=== PATIENT | female | born 1995 | race Hispanic/Latino ===

== ENCOUNTER 2017-05-26 18:01 | Outpatient (CLI) | payer OTHER, MEDICAID ==
[2017-05-26 19:40] VITALS: BP 129/76
[2017-05-26 20:12] LABS: Bacteria,Urine 1+ /HPF (Negative); Bilirubin,Urine NEG (Negative); Blood,Urine SM (Negative); Ketones,Urine TR mg/dL (Negative); Leukocyte Esterase,Urine NEG (Negative); Mucus,Urine 2+ /HPF; Nitrite,Urine NEG (Negative)
--- NOTE | 2017-05-27 07:19 | Ultrasound Report ---
BIOPHYSICAL PROFILE: INDICATION: Decreased movement. COMPARISON: 07/07/2015. TECHNIQUE: Transabdominal ultrasound with Doppler interrogation. 2 - breathing movements 2 - movements 2 - posture and tone 2 - Qualitative amniotic fluid volume 8 - TOTAL SCORE OF POSSIBLE 8 Heart Rate (bpm) 153
--- NOTE | 2017-05-27 07:21 | Ultrasound Report ---
OB LIMITED INDICATION: Leaking of fluid. COMPARISON: 07/07/2015 TECHNIQUE: Transabdominal grayscale ultrasound with Doppler interrogation. Gestation: Sahni Position: Cephalic Amniotic Fluid: WNL (7-24 cm) YEISON = 11.1 cm Placenta: Anterior Placental Grade: I Heart Rate: 154 BPM
== END 2017-05-26 20:49 | disposition home or self-care (01) ==
LOC: TRG 18:01
PROVIDERS: ATTEND Obstetrics & Gynecology
DX: O36.8130 Decreased fetal movements, third trimester, not applicable or unspecified (principal); O42.92 Full-term premature rupture of membranes, unspecified as to length of time between rupture and onset of labor; Z3A.37 37 weeks gestation of pregnancy
CPT/HCPCS: 59025; 76815; 76819; 81001

== ENCOUNTER 2017-06-13 16:22 | Inpatient (IN) | payer OTHER, MEDICAID ==
--- NOTE | 2017-06-13 17:39 | Ultrasound Report ---
FINAL REPORT PROCEDURE: US OB BPP WO NON-STRESS TECHNIQUE: Sonographic evaluation for breathing, movement, tone, and amniotic fluid volume was performed. CPT 70269 HISTORY: decreased movement COMPARISON: No prior studies are available for comparison. FINDINGS: Single live intrauterine is seen with heart rate of 149 beats per minute. Amniotic fluid appears echogenic possibly due to debris. Amniotic fluid volume: Normal-score 2. At least one vertical pocket \T\gt; 2 cm or more in vertical axis. breathing: Normal-score 2. movement: Normal-score 2. tone: Normal. Score: 8 of 8. IMPRESSION: Normal biophysical profile. Amniotic fluid appears echogenic possibly due to debris.
[2017-06-13] MEDS ORDERED: REGLAN IV ONE (17:46)
[2017-06-13] MEDS ORDERED: PEPCID IV ONE (17:46)
[2017-06-13] MEDS ORDERED: BICITRA PO ONE (17:46)
[2017-06-13] MEDS ORDERED: ANCEF/STERILE WATER 2 GM/20 ML 2 GM/20 ML SYRINGE IV NR (18:00)
[2017-06-13] MEDS ORDERED: PITOCin/NS 20 UNIT/1000ML DRIP 20 UNITS/1,000 ML BAG IV SCH ×2 (18:00→22:00)
[2017-06-13] MEDS ORDERED: LACTATED RINGERS 1,000 ML IV SCH (18:00)
--- NOTE | 2017-06-13 18:29 | History and Physical Report ---
History of Present Illness Date of examination: 06/13/17 Date of admission: 06/13/17 16:24 Chief complaint: Decreased movement History of present illness: 22-year-old at 40+3 weeks (via sono at [facility] at 11 wks) presents for DFM, she is scheduled for C-S in the AM. She is status post BPP which is 8 out of 8 with noted notation made of thick amniotic fluid with particulate matter, her NST is category 2. Past History Past Medical History: no pertinent history Past Surgical History: section (# 1 in 2014) NURSERY ATTENDANT History: denies: chlamydia, gonorrhea, hepatitis B, hepatitis C, herpes, HIV , syphilis, trichomonas Social history: single, full code. denies: smoking, alcohol abuse, prescription drug abuse, IV drug use - Obstetrical History Expected Date of Delivery: 06/10/17 Actual Gestation: 40 Week(s) 3 Day(s) : 2 Para: 1 Medications and Allergies Allergies Allergy/AdvReac Type Severity Reaction Status Date / Time No Known Allergies Allergy Verified 07/10/15 20:32 Home Medications Medication Instructions Recorded Confirmed Last Taken Type Ferrous Sulfate [Feosol 325 MG tab] 325 mg PO BID #60 tablet 07/12/15 Unknown Rx HYDROcodone/APAP 5-325 [[place] 1 each PO Q6HR PRN #30 tablet 07/12/15 Unknown Rx 5/325] Ibuprofen [Motrin] 800 mg PO Q8HR PRN #30 tablet 07/12/15 Unknown Rx Pnv with Ca,No.72/Iron/FA 1 each PO DAILY #30 tablet 07/12/15 Unknown Rx [ Plus Tablet] Nitrofurantoin Macrocrysta(Nf) 100 mg PO QID #14 capsule 05/26/17 Unknown Rx [Macrodantin CAP] Active Meds: Active Medications Cefazolin Sodium (Ancef/Sterile Water 2 Gm/20 Ml) 2 gm in 20 mls @ 80 mls/hr IV PREOP NR PRN Reason: Protocol Stop: 06/13/17 23:59 Lactated Ringer's (Lactated Ringers) 1,000 mls @ 2,250 mls/hr IV PREOP JOSÉ Stop: 06/14/17 18:27 Oxytocin/Sodium Chloride (Pitocin/Ns 20 Unit/1000ml Drip) 20 units in 1,000 mls @ 0 mls/hr IV TITR JOSÉ PRN Reason: As Directed Review of Systems Constitutional: no fever, no chills, no fatigue, no weakness Cardiovascular: no chest pain, no orthopnea, no edema, no syncope, no lightheadedness, no shortness of breath, no dyspnea on exertion, no high blood pressure Respiratory: no excessive sputum, no shortness of breath, no dyspnea on exertion Gastrointestinal: no abdominal pain, no nausea, no vomiting, no heartburn, no indigestion Genitourinary: no vaginal bleeding, no vaginal discharge, no leakage of fluid, no contractions - Vital Signs Vital signs: Vital Signs Pulse Pulse Ox 94 H 98 06/13/17 16:28 06/13/17 16:28 Temp Pulse Resp BP Pulse Ox 82 98 06/13/17 18:09 06/13/17 18:09 - Physical Exam Cardiovascular: Regular rate, Normal S1, Normal S2 Lungs: Positive: Clear to auscultation, Normal air movement Abdomen: Positive: normal appearance, soft. Negative: distention, tenderness, guarding, rigidity Uterus: Positive: enlarged (EFW ~ 3600). Negative: tender Extremities: Positive: normal - Obstetrical FHR: category 2 Results All other labs normal. Assessment and Plan A: 22-year-old 001 at 40+3 with prior desires repeat -[facility] 05/09 P: -Patient has been consented -Proceed with repeat once OR available - Patient Problems (1) 40 weeks gestation of Current Visit: No Status: Acute (2) History of Current Visit: Yes Status: Acute
[2017-06-13 18:58] LABS: Basophils % (Auto) 0.2 % (0.0-1.8); Eosinophils % (Auto) 0.2 % (0.0-4.3); Hemoglobin 11.4 gm/dl (10.1-14.3); Mean Corpuscular HGB Conc 32 % (30-34); Mean Corpuscular Hemoglobin 27 pg (28-32); Mean Corpuscular Volume 85 fl (79-97); Platelet Count 176 K/mm3 (140-440); Red Blood Count 4.23 M/mm3 (3.65-5.03); Red Cell Distribution Width 14.1 % (13.2-15.2); White Blood Count 12.2 K/mm3 (4.5-11.0)
[2017-06-13] MEDS ORDERED: ANCEF/STERILE WATER 2 GM/20 ML IV ONE (19:55)
[2017-06-13] MEDS ORDERED: WATER FOR IRRIG STERILE IR ONE (20:00)
[2017-06-13] MEDS ORDERED: NACL 0.9% IR ONE (20:00)
[2017-06-13] MEDS ORDERED: LACTATED RINGERS 1,000 ML ONE (20:25)
[2017-06-13] MEDS ORDERED: MORPHINE ONE (20:26)
[2017-06-13] MEDS ORDERED: ZOFRAN ONE (20:30)
[2017-06-13] MEDS ORDERED: NEO SYNEPHRINE/NS Syringe(OR USE) IV ONE (20:30)
[2017-06-13] MEDS ORDERED: VERSED ONE (20:33)
--- NOTE | 2017-06-13 21:01 | Event Note ---
Date: 06/13/17 Just reviewed a copy of patients record from [facility]. She had a pelvic sono at 8+6 wks on 11/10/16 whic puts her GABBY at 06/16/17. Patients gestational age is therefore 39+4 weeks.
--- NOTE | 2017-06-13 21:10 | Operative Report ---
Operative Report Operative Report: DATE: 06/13/2017 PREOPERATIVE DIAGNOSIS: 22-year-old 001 at 39+4 weeks, prior desires repeat, BPP 8 out of 10 POSTOP DIAGNOSIS: As above NAME OF PROCEDURE: Repeat low transverse section SURGEON: IMTIAZ ABDUL MD CELL TESTER: [] ANESTHESIA: Combined spinal epidural EBL: 700 mL PATHOLOGY SPECIMEN: None URINE OUTPUT: 100 mL BRIEF NOTE: Patient scheduled for tomorrow, presented to triage complaining of decreased movement. Sonogram for BPP 8 out of 8 but shows - "amniotic fluid appears very thick with internal debris". Patient's NST category 2 with minimal variability. Decision made to proceed with repeat C- section. FINDINGS: Male infant in cephalic presentation, time of was 20:17, infant weight was 3503 grams or 7 lbs. 12 oz., Apgars were 8 and 9, normal uterus tubes and ovaries bilaterally, minimal adhesions DESCRIPTION OF PROCEDURE: She was taken to the operating room where she was prepped and draped in a sterile fashion, she was placed in the dorsal supine position. Pfannenstiel incision was performed through her prior incisional scar which was carried through to underlying rectus fascia which was scored in the midline. The fascial incision was extended laterally with use of Saavedra scissors, the anterior leaf was then grasped with Kochers forceps elevated dissected sharply and bluntly off the underlying rectus in a similar fashion inferior leaf was grasped elevated dissected sharply and bluntly off the underlying rectus. The rectus was in the midline, good visualization of bladder was noted. A bladder blade was placed in the patient's pelvic cavity ; bladder flap was created. A hysterotomy incision was then performed in the lower segment with white colored amniotic fluid noted, hysterotomy incision was extended laterally with the use of fingers manually. in cephalic presentation was delivered in the usual manner; cord was clamped and cut was handed over to waiting nursery staff. The placenta was then delivered manually intact, the uterus was exteriorized cleared of all clots and debris. Hysterotomy incision was then closed in a running locked fashion with 0 Vicryl on a CTX; using the same suture was imbricate the initial layer. Interrupted ebggls-ev-[id number] stitches were used to obtain hemostasis. Uterus was then returned to the patient's pelvic cavity; peritoneal edges were grasped with hemostats and Key's elevated copious irrigation was used to clear the gutters of all clots and debris. Tercel hemostatic agent was then applied to the hysterotomy incision as a means to prevent future bleeding. The bladder flap was closed without difficulty. The peritoneal layer was then closed in a running fashion with 3-0 Vicryl and the rectus was reapproximated with a single [id number] stitch. The fascia was closed in a running fashion with 0 Vicryl and tied in the opposite side. The subcutaneous layer was irrigated and then reapproximated with interrupted [id number]-[id number] stitches. The skin was closed in a subcuticular manner with 4-0 Vicryl. She tolerated the procedure well lap and instrument counts were correct 2 she did receive 2 g of Ancef prior to incision she is transferred to PACU in stable condition thank you.
[2017-06-13] MEDS ORDERED: TYLENOL PO PRN (21:12)
[2017-06-13] MEDS ORDERED: MYLICON PO PRN (21:12)
[2017-06-13] MEDS ORDERED: NARCAN 0.4 MG/1 ML IV PRN (21:12)
[2017-06-13] MEDS ORDERED: TUCKS PAD TP PRN (21:12)
[2017-06-13] MEDS ORDERED: ZOFRAN IV PRN (21:12)
[2017-06-13] MEDS ORDERED: LANSINOH TP PRN (21:12)
[2017-06-13] MEDS ORDERED: ANUCORT-HC PR PRN (21:12)
--- NOTE | 2017-06-13 21:30 | Anesthesia Consultation ---
Anesthesia Consult and Med Hx Date of service: 06/13/17 - Airway Anesthetic Teeth Evaluation: Good ROM Head & Neck: Adequate Mental/Hyoid Distance: Adequate Mallampati Class: Class II Intubation Access Assessment: Probably Good - Pulmonary Exam CTA: Yes - Pre-Operative Health Status ASA Pre-Surgery Classification: ASA3, Emergency Proposed Anesthetic Plan: Epidural, Spinal - Pulmonary Hx Asthma: No COPD: No Hx Pneumonia: No - Cardiovascular System Hx Hypertension: Yes (gestational) - Central Nervous System Hx Seizures: No Hx Back Pain: Yes Hx Psychiatric Problems: No - Gastrointestinal Hx Gastroesophageal Reflux Disease: Yes - Endocrine Hx Renal Disease: No Hx End Stage Renal Disease: No Hx Hypothyroidism: No Hx Hyperthyroidism: No - Hematic Hx Anemia: No Hx Sickle Cell Disease: No - Other Systems Hx Alcohol Use: No Hx Obesity: Yes
[2017-06-13] MEDS ORDERED: BENADRYL IV PRN (21:31)
[2017-06-13] MEDS ORDERED: DILAUDID IV PRN ×2 (21:31)
--- NOTE | 2017-06-13 21:31 | Anesthesia Day of Surgery ---
Anesthesia Day of Surgery - Day of Surgery Patient Examined: Yes Patient H&P Reviewed: Yes Patient is NPO: Yes (FSP)
[2017-06-13] MEDS ORDERED: SODIUM CHLORIDE FLUSH SYRINGE 10 ML IV PRN (22:00)
[2017-06-13] MEDS ORDERED: D5LR 1,000 ML IV SCH (22:00)
[2017-06-14] MEDS: TORADOL IV PRN ×2 (01:39→08:24)
--- NOTE | 2017-06-14 10:02 | Progress Note ---
Subjective Date of service: 06/14/17 Interval history: 1st POD after repeat Patient is in the bed, comfortable. Pain is mostly controlled with pain meds. Has not ambulated yet. No residual neurological deficit. No significant pruritus. No anesthesia complications Objective - Constitutional Vitals: Vital Signs - 12hr 06/13/17 06/13/17 06/13/17 22:04 22:05 22:10 Temperature 98.7 F Pulse Rate 72 71 Respiratory 10 L 22 Rate Blood Pressure 111/65 115/65 Blood Pressure [Left] O2 Sat by Pulse 99 99 Oximetry 06/13/17 06/13/17 06/14/17 22:15 22:57 04:20 Temperature 98.6 F 98.2 F Pulse Rate 72 81 89 Respiratory 14 20 20 Rate Blood Pressure 113/69 Blood Pressure 129/68 103/55 [Left] O2 Sat by Pulse 100 Oximetry - Labs CBC & Chem 7: 06/14/17 09:16 Labs: Abnormal lab results 06/13/17 06/14/17 Range/Units 18:40 09:16 WBC 12.2 H (4.5-11.0) K/mm3 Hgb 9.0 L (10.1-14.3) gm/dl MCH 27 L (28-32) pg Lymph % (Auto) 13.3 L (13.4-35.0) % Seg Neutrophils % 80.4 H (40.0-70.0) % Seg Neutrophils # 9.8 H (1.8-7.7) K/mm3
--- NOTE | 2017-06-14 10:42 | Progress Note ---
Assessment and Plan POD # 1 s/p Repeat LTCS -Doing well P: -Continue routine post-op care -Anticipate in 24-48 hrs - Patient Problems (1) 40 weeks gestation of Current Visit: No Status: Acute (2) History of Current Visit: Yes Status: Acute Subjective - Subjective Date of service: 06/14/17 Principal diagnosis: POD# 1 Interval history: Patient seen and examined, stable with no new complaints or issues Patient reports: appetite normal, voiding normally (With Bansal in place), pain well controlled, no flatus, no ambulating normally, no nauseated [place]: doing well Objective - Vital Signs Latest vital signs: Vital Signs Temp Pulse Resp BP BP Pulse Ox 06/14/17 08:08 98.1 F 87 16 112/69 06/14/17 04:20 98.2 F 89 20 103/55 06/13/17 22:57 98.6 F 81 20 129/68 06/13/17 22:15 72 14 113/69 100 06/13/17 22:10 71 22 115/65 99 06/13/17 22:05 72 10 L 111/65 99 06/13/17 22:04 98.7 F 06/13/17 22:00 91 H 17 103/71 100 06/13/17 21:55 64 20 112/69 99 06/13/17 21:50 61 21 109/64 99 06/13/17 21:45 64 20 107/61 99 06/13/17 21:40 61 19 114/60 99 06/13/17 21:36 78 12 100/53 100 06/13/17 21:30 83 17 106/64 100 06/13/17 21:25 87 12 111/61 100 06/13/17 21:20 90 14 103/36 99 06/13/17 21:18 98.1 F 06/13/17 21:16 92 H 21 111/56 98 06/13/17 21:13 100 06/13/17 19:05 84 131/79 06/13/17 19:02 98.5 F 84 18 131/79 98 06/13/17 18:09 82 98 06/13/17 18:04 83 99 06/13/17 17:59 89 98 06/13/17 17:53 87 98 06/13/17 17:48 89 97 06/13/17 17:43 90 97 06/13/17 17:38 91 H 96 06/13/17 16:38 84 97 06/13/17 16:33 90 98 06/13/17 16:28 94 H 98 Intake and Output 06/13/17 06/14/17 06/14/17 22:59 06:59 14:59 Intake Total 2100 240 Output Total 350 800 Balance 1750 -560 Intake: IV 2100 Oral 240 Output: Urine 350 800 Indwelling Catheter 800 Other: Total, Intake Amount 240 Total, Output Amount 800 Weight 103.419 kg Estimated Blood Loss 700 - Exam Abdomen: Present: normal appearance, soft, normal bowel sounds. Absent: distention, tenderness, guarding, rigidity Uterus: Present: firm, fundal height below umbilicus Extremities: Present: normal Incision: Present: dressed - Labs Labs: Abnormal lab results 06/13/17 06/14/17 Range/Units 18:40 09:16 WBC 12.2 H (4.5-11.0) K/mm3 Hgb 9.0 L (10.1-14.3) gm/dl Hct 28.0 L D (30.3-42.9) % MCH 27 L (28-32) pg Lymph % (Auto) 13.3 L (13.4-35.0) % Seg Neutrophils % 80.4 H (40.0-70.0) % Seg Neutrophils # 9.8 H (1.8-7.7) K/mm3
[2017-06-14] MEDS: FEOSOL PO SCH (12:01)
[2017-06-14] MEDS: PRENATAL VITAMIN PO SCH (12:01)
[2017-06-14] MEDS: MOTRIN PO PRN (15:22)
[2017-06-14] MEDS: PERCOCET 5/325 PO PRN (17:50)
[2017-06-15] MEDS: MOTRIN PO PRN ×2 (03:45→22:55)
[2017-06-15] MEDS: PERCOCET 5/325 PO PRN ×3 (03:45→22:56)
[2017-06-15] MEDS ORDERED: BOOSTRIX IM ONE (06:00)
[2017-06-15] MEDS: PRENATAL VITAMIN PO SCH (10:02)
[2017-06-15] MEDS: FEOSOL PO SCH (10:02)
--- NOTE | 2017-06-15 10:46 | Progress Note ---
Assessment and Plan POD # 2 s/p Repeat LTCS -Doing well P: -Continue routine post-op care -Anticipate in 24-48 hrs - Patient Problems (1) Status post repeat low transverse section Current Visit: Yes Status: Acute (2) 40 weeks gestation of Current Visit: No Status: Acute (3) History of Current Visit: Yes Status: Acute Subjective - Subjective Date of service: 06/15/17 Principal diagnosis: POD# 2 Interval history: Patient seen and examined, stable with no shortness of breath, chest pain or abd pain. Has adequate bowel bladder function He does complain of shoulder pain and neck stiffness, exam no effect on movement of her extremities Plan is to continue conservative care for now. If worsens, will refer to primary care physician Patient reports: appetite normal, voiding normally, pain well controlled, flatus , ambulating normally, no dizzy ambulation, no nauseated [place]: doing well Objective - Vital Signs Latest vital signs: Vital Signs Temp Pulse Resp BP BP 06/15/17 07:41 98.2 F 76 18 110/64 06/15/17 00:35 98.2 F 83 16 117/73 06/14/17 21:30 98.4 F 90 16 118/77 06/14/17 18:38 98.7 F 77 108/65 06/14/17 12:00 98.7 F 88 18 118/60 Intake and Output 06/14/17 06/15/17 06/15/17 22:59 06:59 14:59 Intake Total 660 Output Total 800 250 Balance -800 410 Intake: Intake, Free Water 660 Output: Urine 800 250 Void 800 250 Other: Total, Output Amount 800 250 # Voids Void 2 1 - Exam Abdomen: Present: normal appearance, soft. Absent: distention, tenderness, guarding, rigidity Uterus: Present: fundal height below umbilicus. Absent: tenderness Extremities: Present: normal Incision: Present: dry, intact
--- NOTE | 2017-06-15 10:47 | Discharge Summary ---
Providers - Providers Date of Admission: 06/13/17 16:24 Date of discharge: 06/16/17 Attending physician: IMTIAZ ABDUL Primary care physician: IMTIAZ ABDUL Hospitalization Reason for admission: section Delivery: Procedure: repeat low transverse (2nd repeat) Incision: dry, intact Other procedures: none complications: none Discharge diagnosis: IUP at term delivered [place] baby: male Hospital course: Uncomplicated post op course Condition at discharge: Good Disposition: DC-01 TO HOME OR SELFCARE - Discharge Diagnoses (1) Status post repeat low transverse section Status: Acute (2) 40 weeks gestation of Status: Acute (3) History of Status: Acute Plan - Discharge Medications Prescriptions: Ibuprofen [Motrin 600 MG tab] 600 mg PO Q8H PRN #30 tablet PRN Reason: Pain Multivitamin with Iron [Multivitamins with Iron] 1 each PO DAILY #30 tablet oxyCODONE /ACETAMINOPHEN [Percocet 5/325] 1 tab PO Q6HR PRN #30 tablet PRN Reason: Pain - Provider Discharge Summary Activity: no sex for 6 weeks, no heavy lifting 4 weeks, no strenuous exercise Diet: routine Additional instructions: [] Smoking cessation referral if applicable(refer to patient education folder for contact #) [] Refer to [facility] Booklet Call your doctor immediately for: * Fever > 100.5 * Heavy vaginal bleeding ( >1 pad per hour) * Severe persistent headache * Shortness of breath * Reddened, hot, painful area to leg or breast * Drainage or odor from incision. * Keep incision clean and dry at all times and follow doctor's instructions regarding bathing/showering - Follow up plan Follow up: IMTIAZ ABDUL MD [Primary Care Provider] - 7 Days
[2017-06-15] MEDS: SENOKOT PO PRN ×2 (16:26→22:55)
[2017-06-16] MEDS: FEOSOL PO SCH (09:59)
[2017-06-16] MEDS: PRENATAL VITAMIN PO SCH (09:59)
[2017-06-16 10:15] VITALS: BP 121/73
== END 2017-06-16 10:40 | disposition home or self-care (01) | DRG 765 ==
LOC: TRG 16:22 → APU 16:24 → OB 22:38
PROVIDERS: ADMIT Obstetrics & Gynecology Gynecology; ATTEND Obstetrics & Gynecology Gynecology
PROC: 10D00Z1 Extraction of Products of Conception, Low, Open Approach (ICD-10-PCS; principal; 2017-06-13)
PROC: 3E0234Z Introduction of Serum, Toxoid and Vaccine into Muscle, Percutaneous Approach (ICD-10-PCS; 2017-06-15)
DX: O34.211 Maternal care for low transverse scar from previous cesarean delivery (principal); Z68.41 Body mass index [BMI] 40.0-44.9, adult; Z23 Encounter for immunization; O99.62 Diseases of the digestive system complicating childbirth; O99.214 Obesity complicating childbirth; E66.9 Obesity, unspecified; Z3A.40 40 weeks gestation of pregnancy; Z37.0 Single live birth
CPT/HCPCS: 36415; 76819; 85014; 85018; 85025; 86592; 86850; 86900; 86901; 90471; 90715; C9250; J0690; J1885; J2250; J2270; J2370; J2405; J2590; J2765; J7120; J7121